=== PATIENT | male | born 1990 | race Caucasian/White ===

== ENCOUNTER 2019-04-19 15:19 | Emergency (ER) | payer SELFPAY ==
--- NOTE | 2019-04-19 15:32 | ED Physician Documentation ---
PD HPI URI - Stated complaint Stated Complaint: SOA,DIZZINESS, NECK PAIN - Chief complaint Chief Complaint: General - History obtained from History obtained from: Patient - History of Present Illness Timing - onset: How many weeks ago (1) Timing duration: Weeks (1) Timing details: Gradual onset, Still present, Waxing and waning Associated symptoms: Sweats, Nasal congestion, Dry cough, Dyspnea. No: Fever, Chills, Sore throat, Productive cough, Hemoptysis, Chest pain, NVD, Bilateral edema Contributing factors: Immunocompromised. No: Sick contact, Travel, COPD / asthma (no asthma per se, but has allergies in the past.) Worsened by: Activity Similar symptoms before: Has not had sx before Recently seen: Not recently seen Review of Systems Constitutional: reports: Myalgias. denies: Fever, Chills Nose: reports: Rhinorrhea / runny nose, Congestion Throat: denies: Sore throat Cardiac: reports: Palpitations. denies: Chest pain / pressure, Pedal edema, Calf pain Respiratory: reports: Dyspnea, Cough, Wheezing GI: denies: Abdominal Pain, Nausea, Vomiting, Diarrhea Musculoskeletal: denies: Neck pain, Back pain Neurologic: reports: Generalized weakness. denies: Focal weakness, Numbness PD PAST MEDICAL HISTORY - Past Medical History Cardiovascular: None Respiratory: None Neuro: None Endocrine/Autoimmune: None - Past Surgical History Past Surgical History: No - Present Medications Home Medications: Ambulatory Orders Medication Instructions Recorded Confirmed Albuterol Sulfate [Albuterol 2 puffs IH QID #1 hfa.aer.ad 04/19/19 Sulfate Hfa] Cetirizine [ZyrTEC] 10 mg PO DAILY #15 tablet 04/19/19 dexAMETHasone [Decadron] 4 mg PO DAILY #5 tablet 04/19/19 - Allergies Allergies/Adverse Reactions: Allergies Allergy/AdvReac Type Severity Reaction Status Date / Time No Known Drug Allergies Allergy Verified 04/19/19 15:28 - Living Situation Living Situation: reports: Alone Living Arrangement: reports: At home - Social History Does the pt smoke?: No Smoking Status: Never smoker Does the pt drink ETOH?: No Does the pt have substance abuse?: Yes Substance Use and Type: Marijuana (previously but has not smoked in awhile. Did do Dabs for awhile before quiting.) - Immunizations Immunizations are current?: Yes - POLST Patient has POLST: No PD ED PE NORMAL - Vitals Vital signs reviewed: Yes (good sats) - General General: Alert and oriented X 3, No acute distress, Well developed/nourished - HEENT HEENT: Ears normal, Moist mucous membranes, Pharynx benign - Neck Neck: Supple, no meningeal sign, No adenopathy - Cardiac Cardiac: RRR, No murmur - Respiratory Respiratory: No: Clear bilaterally (no coarse sounds and no fine crackles. Has diffuse moderate expiratory wheezing and prolonged exp phase. ) - Abdomen Abdomen: Soft, Non tender Results - Vitals Vitals: Vital Signs - 24 hr 04/19/19 04/19/19 04/19/19 15:26 16:09 17:23 Temperature 36.7 C Heart Rate 76 73 65 Respiratory 18 12 16 Rate Blood Pressure 138/93 H 123/33 L O2 Saturation 99 98 Oxygen O2 Source Room air - EKG (time done) 15:51 Rate: Rate (enter#) (64) Rhythm: NSR [place]: Normal Intervals: Normal SD QRS: Normal Ischemia: Normal ST segments, ST elevation c/w repol. No: ST elevation c/w ischemia, ST depression - Rads (name of study) chest xray Radiology: Prelim report reviewed (bronchial wall thickening, normal heart size, normal lung elizabeth. ), See rad report PD MEDICAL DECISION MAKING - ED course Complexity details: reviewed results (chest xray showing bronchial wall thickening. No infiltrates. Normal heart size. ), re-evaluated patient (feeling improved well after albuterol neb treatment. ), considered differential, d/w patient Departure - Departure Disposition: 01 Home, Self Care Clinical Impression: Wheezing Dyspnea Qualifiers: Dyspnea type: shortness of breath Qualified Code(s): R06.02 - Shortness of breath Condition: Stable Record reviewed to determine appropriate education?: Yes Instructions: ED Dyspnea Shortness of Breath Prescriptions: Albuterol Sulfate [Albuterol Sulfate Hfa] 2 puffs IH QID #1 hfa.aer.ad Cetirizine [ZyrTEC] 10 mg PO DAILY #15 tablet dexAMETHasone [Decadron] 4 mg PO DAILY #5 tablet Comments: Your chest x-ray does not show any signs of enlarged heart, fluid in the lungs or pneumonia. There is some thickening of the bronchials which would go along with some upper airway inflammation and wheezing and would suggest allergies or viral illness. I would have use an albuterol inhaler 2 to 3 puffs 4 times a day regularly for the next 7 to 10 days and extra times as needed for wheezing. Decadron steroid for inflammation of the airways daily for the next 5 days. Cetirizine antihistamine for congestion and potential allergies. Recheck if not improving well over the next week. Tylenol or ibuprofen if needed for aches and pains. Your EKG looked normal for age. Discharge Date/Time: 04/19/19 17:09
[2019-04-19] MEDS ORDERED: ALBUTEROL NEB 2.5 MG/3 ML INH STA (15:48)
[2019-04-19] MEDS ORDERED: CHERRY SYRUP 10 ML UDC PO ONE (15:49)
[2019-04-19] MEDS ORDERED: DEXAMETHASONE 10 MG/ML VIAL PO STA (15:49)
--- NOTE | 2019-04-19 16:47 | XRAY Report ---
Reason: dyspnea/ cough Procedure Date: 04/19/2019 Accession Number: [id number] / [id number] Procedure: XR - Chest 2 View X-Ray CPT Code: 16805 Final Report FULL RESULT: EXAM: CHEST RADIOGRAPHY EXAM DATE: 04/19/2019 04:38 PM. CLINICAL HISTORY: Dyspnea/ cough. COMPARISON: CHEST 2 VIEW PA/LAT 01/13/2014 12:32 AM. TECHNIQUE: 2 views. FINDINGS: Lungs/Pleura: Peribronchial thickening No focal opacities evident. No pleural effusion. No pneumothorax. Normal volumes. Mediastinum: Heart and mediastinal contours are unremarkable. Other: None. IMPRESSION: Peribronchial thickening may resent bronchitis in the right clinical setting [facility]
[2019-04-19 17:24] VITALS: BP 123/33
== END 2019-04-19 17:09 | disposition home or self-care (01) ==
LOC: ED 15:19
DX: R06.2 Wheezing (principal); R06.02 Shortness of breath
CPT/HCPCS: 71046; 93005; 94640; 99284; A9270